=== PATIENT | female | born 1960 | race Two or more races ===

== ENCOUNTER 2017-07-18 16:01 | Emergency (ER) | payer OTHER ==
[~2017-07-18] VITALS: Ht 152.4 cm; Wt 54.4 kg
[~2017-07-18 16:01] MED LIST: AMBIEN10 M1 ORAL; ATIVAN2 MG ORAL; CEPHALEXIN500 MG ORAL; LEXAPRO10 MG ORAL; NEURONTIN300 MG ORAL; NORCO 10-325 T1 EACH ORAL
--- NOTE | 2017-07-18 16:33 | Emergency Room Report ---
History of Present Illness General Chief Complaint: Female Urogenital Problems Source: Patient Present Illness HPI 57-year-old female presents to the emergency department complaining of 5/10 in severity dysuria and urinary urgency x3 weeks. Patient reports she was treated for UTI and finished a course of Macrobid that she took for 3 days in addition to amoxicillin. Patient reports her symptoms fell as though he were going to resolve however the immediately return. Patient also reports itching and burning to the external labia went not urinating denies vaginal discharge, bleeding, hematuria, low back pain, fevers, chills, abdominal pain, nausea, vomiting, constipation or diarrhea.Denies CP, Palpitations, LOC, AMS, dizziness , Changes in Vision, Sensation, paresthesias, or a sudden severe headache. Allergies: Coded Allergies: No Known Allergies (Unverified , 01/14/16) Patient History Past Medical History: see triage record Past Surgical History: none Pertinent Family History: none Now: No Nursing Documentation-PMH Hx Asthma: Yes Hx Cancer: Yes - right lung cancer Hx Neurological Problems: No Review of Systems All Other Systems: negative except mentioned in HPI Physical Exam Vital Signs Date Time Temp Pulse Resp B/P (MAP) Pulse Ox O2 Delivery O2 Flow Rate FiO2 07/18/17 16:22 98.2 78 16 130/80 98 Room Air Sp02 EP Interpretation: reviewed, normal General Appearance: no apparent distress, alert, GCS 15, non-toxic Head: normocephalic, atraumatic Eyes: bilateral eye normal inspection, bilateral eye PERRL ENT: hearing grossly normal, normal voice Neck: full range of motion Respiratory: lungs clear, normal breath sounds, speaking full sentences Cardiovascular #1: regular rate, rhythm Gastrointestinal: non tender, soft Rectal: deferred Genitourinary: normal inspection, no CVA tenderness Musculoskeletal: back normal, gait/station normal, normal range of motion, non- tender Neurologic: alert, oriented x3, responsive, motor strength/tone normal, sensory intact, speech normal, grossly normal Psychiatric: judgement/insight normal Skin: normal color, no rash, warm/dry, well hydrated Medical Decision Making PA Attestation Dr. rich is my supervising Physician whom patient management has been discussed with. Diagnostic Impression: Primary Impression: Cystitis Additional Impression: Vaginitis Qualified Codes: N76.0 - Acute vaginitis ER Course 57-year-old female presents to the emergency department complaining of 5/10 in severity dysuria and urinary urgency x3 weeks. Patient reports she was treated for UTI and finished a course of Macrobid that she took for 3 days in addition to amoxicillin. Patient reports her symptoms fell as though he were going to resolve however the immediately return. Patient also reports itching and burning to the external labia went not urinating denies vaginal discharge, bleeding, hematuria, low back pain, fevers, chills, abdominal pain, nausea, vomiting, constipation or diarrhea.Denies CP, Palpitations, LOC, AMS, dizziness , Changes in Vision, Sensation, paresthesias, or a sudden severe headache. Ddx considered but are not limited to UTi , Pyelo, STI, Stone, Cystitis, vaginitis secondary to abx use. Vital signs: are WNL, pt. is afebrile H&PE are most consistent with UTI with vaginitis secondary to abx use. ORDERS: - UA labs are attached : presence of bacteria however suspicious for contamination. also RBC's indicating cystitis. ED INTERVENTIONS: -Pyridium PO -Diflucan PO DISCHARGE: At this time pt. is stable for d/c to home. Will provide printed patient care instructions, and any necessary prescriptions. Care plan and follow up instructions have been discussed with the patient prior to discharge. Labs Test 07/18/17 16:40 Urine Color Yellow Urine Appearance Clear Urine pH 6 (4.5-8.0) Urine Specific [place] 1.015 (1.005-1.035) Urine Protein 1+ (NEGATIVE) Urine Glucose (UA) Negative (NEGATIVE) Urine Ketones Negative (NEGATIVE) Urine Occult Blood 1+ (NEGATIVE) Urine Nitrite Negative (NEGATIVE) Urine Bilirubin Negative (NEGATIVE) Urine Urobilinogen Normal MG/DL (0.0-1.0) Urine Leukocyte Esterase 1+ (NEGATIVE) Urine RBC 2-4 /HPF (0 - 2) Urine WBC 0-2 /HPF (0 - 2) Urine Squamous Epithelial Cells Few /LPF (NONE/OCC) Urine Bacteria Few /HPF (NONE) Last Vital Signs Date Time Temp Pulse Resp B/P (MAP) Pulse Ox O2 Delivery O2 Flow Rate FiO2 07/18/17 16:22 98.2 78 16 130/80 98 Room Air Status: improved Disposition: HOME, SELF-CARE Condition: Stable Scripts Phenazopyridine Hcl* (PYRIDIUM*) 200 Mg Tablet 200 MG ORAL THREE TIMES A DAY, #14 TAB 0 Refills Prov: Safia Arciniega 07/18/17 Ciprofloxacin* (CIPRO*) 500 Mg Tablet 500 MG PO BID for 3 Days, #6 TAB Prov: Safia Arciniega 07/18/17 Fluconazole (FLUCONAZOLE) 100 Mg Tablet 100 MG ORAL DAILY, #2 TAB 0 Refills Prov: Safia Arciniega 07/18/17 Patient Instructions: Dysuria, Urinary Frequency Additional Instructions: Take medications as directed. Follow up with a UROLOGIST in 3-5 days, even if your symptoms have resolved. --Please review list of primary care clinics, if you do not already have a primary care provider Return sooner to ED if new symptoms occur, or current symptoms become worse. - Please note that this Emergency Department Report was dictated using [employer] resident technology software, occasionally this can lead to erroneous entry secondary to interpretation by the dictation equipment. Safia Arciniega Jul 18, 2017 16:33
[2017-07-18 17:10] LABS: APPEARANCE,URINE CLEAR; BILIRUBIN, URINE NEGATIVE (NEGATIVE); GLUCOSE, URINE (UA) NEGATIVE (NEGATIVE); KETONES,URINE NEGATIVE (NEGATIVE); LEUKOCYTE ESTERASE ,URINE 1+ (NEGATIVE); NITRITE,URINE NEGATIVE (NEGATIVE); PH,URINE 6 (4.5-8.0); PROTEIN,URINE 1+ (NEGATIVE); UROBILINOGEN,URINE NORMAL MG/DL (0.0-1.0)
[2017-07-18 17:12] LABS: COLOR,URINE YELLOW
[2017-07-18] MEDS ORDERED: Phenazopyridine 200mg tab ORAL ONE (17:30)
[2017-07-18] MEDS ORDERED: PHENAZOPYRIDIN200 MG ORAL ×2 (18:05→18:15)
[2017-07-18] MEDS ORDERED: CIPRO500 MG PO ×2 (18:05→18:15)
[2017-07-18] MEDS ORDERED: FLUCONAZOLE100 MG ORAL ×2 (18:05→18:15)
[2017-07-18] MEDS ORDERED: Fluconazole 100mg tab ORAL ONE (18:15)
[2017-07-18 18:50] VITALS: BP 126/78
[2017-07-18 18:51] VITALS: BP 126/78
== END 2017-07-18 18:58 | disposition home or self-care (01) ==
LOC: EMR 17:56
DX: N30.90 Cystitis, unspecified without hematuria (principal); N76.0 Acute vaginitis; J45.909 Unspecified asthma, uncomplicated; Z85.118 Personal history of other malignant neoplasm of bronchus and lung
CPT/HCPCS: 81003; 99284